=== PATIENT | male | born 1970 | race African-American/Black ===

== ENCOUNTER 2016-10-03 12:59 | Emergency (ER) | payer OTHER ==
[~2016-10-03] VITALS: Ht 182.9 cm; Wt 61.2 kg
[2016-10-03 13:45] VITALS: BP 137/76
[2016-10-03] MEDS ORDERED: IBUPROFEN600 MG ORAL (13:45)
[2016-10-03] MEDS ORDERED: ACETAMINOPHEN-1 EAC1 ORAL ×2 (13:45→13:50)
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
== END 2016-10-03 13:49 | disposition home or self-care (01) ==
LOC: EMR 13:49
DX: S76.312A Strain of muscle, fascia and tendon of the posterior muscle group at thigh level, left thigh, initial encounter (principal); X50.3XXA Overexertion from repetitive movements, initial encounter; Y93.55 Activity, bike riding; Y92.9 Unspecified place or not applicable
CPT/HCPCS: 99284

== ENCOUNTER 2019-07-26 11:05 | Emergency (ER) | payer OTHER ==
[~2019-07-26] VITALS: Ht 185.4 cm; Wt 111.1 kg
[~2019-07-26 11:05] MED LIST: ACETAMINOPHEN-1 EAC1 ORAL; IBUPROFEN600 MG ORAL
[2019-07-26 11:24] VITALS: BP 146/90
--- NOTE | 2019-07-26 11:27 | NUR ---
ED Nurse Note: Patient walked in to ER c/o CP x 4 days. Patient stated started from the back, then radiating to chest and left arm. Patient presented anxious, crying, AAO x4, VSS at this time. Patient stated argued today with his kids, after that started feel bad and anxiuos. Patient has non-labored breathing, O2 sat 100% on RA.
[2019-07-26] MEDS ORDERED: Omnipaque 350 100ml vial INJ PRN ×2 (11:30)
[2019-07-26 11:36] LABS: BASOPHILS % (AUTO) 1.1 % (0.0-2.0); EOSINOPHILS % (AUTO) 1.3 % (0.0-3.0); HEMATOCRIT 39.5 % (42.0-52.0); HEMOGLOBIN 13.4 G/DL (14.2-18.0); LYMPHOCYTES % (AUTO) 22.9 % (20.0-45.0); MEAN CORPUSCULAR VOLUME 94 FL (80-99); MONOCYTES % (AUTO) 9.1 % (1.0-10.0); NEUTROPHILS % (AUTO) 65.6 % (45.0-75.0); PLATELET COUNT 237 K/UL (150-450); RED CELL DISTRIBUTION WIDTH 13.2 % (11.6-14.8); WHITE BLOOD COUNT 8.4 K/UL (4.8-10.8)
[2019-07-26 11:52] LABS: ANION GAP 10 mmol/L (5-15); BLOOD UREA NITROGEN 15 mg/dL (7-18); CARBON DIOXIDE 24 MMOL/L (21-32); CHLORIDE 108 MMOL/L (98-107); POTASSIUM 4.1 MMOL/L (3.5-5.1); SODIUM 142 MMOL/L (136-145)
[2019-07-26 11:57] LABS: ALANINE AMINOTRANSFERASE 34 U/L (12-78); ALBUMIN 3.8 G/DL (3.4-5.0); ALBUMIN/GLOBULIN RATIO 1.1 (1.0-2.7); ALKALINE PHOSPHATASE 63 U/L (46-116); ASPARTATE AMINO TRANSFERASE 35 U/L (15-37); BILIRUBIN,TOTAL 0.8 MG/DL (0.2-1.0)
--- NOTE | 2019-07-26 12:27 | Emergency Room Report ---
History of Present Illness General Chief Complaint: Chest Pain Source: Patient Present Illness HPI 49-year-old male presents with atypical chest pain he feels a discomfort that started an hour prior to arrival he states his been having ongoing aches near his chest and left upper back for the past 4 days aggravated with movement alleviated with rest no exertional component no shortness of breath no dyspnea on exertion severity is mild, he denies any diaphoresis, he does report a family history of [place] around age 50 Allergies: Coded Allergies: No Known Allergies (Unverified , 10/03/16) COVID-19 Screening Contact w/high risk pt: No Recent Travel to affected area: No Experienced COVID-19 symptoms?: No Patient History Past Medical History: see triage record Reviewed Nursing Documentation: PMH: Agreed; PSxH: Agreed Nursing Documentation-PMH Past Medical History: No Stated History Review of Systems All Other Systems: negative except mentioned in HPI Physical Exam Vital Signs Date Time Temp Pulse Resp B/P (MAP) Pulse Ox O2 Delivery O2 Flow Rate FiO2 07/26/19 11:11 98.4 73 18 146/90 (108) 100 Room Air Sp02 EP Interpretation: reviewed, normal General Appearance: well appearing, no apparent distress, alert Head: normocephalic, atraumatic Eyes: bilateral eye PERRL, bilateral eye EOMI ENT: uvula midline, moist mucus membranes Neck: supple, thyroid normal, supple/symm/no masses Respiratory: lungs clear, no respiratory distress, no retraction, no accessory muscle use Cardiovascular #1: normal peripheral pulses, regular rate, rhythm, no edema, no gallop, no murmur Gastrointestinal: non tender, soft, no guarding, no rebound Musculoskeletal: normal inspection Neurologic: alert, oriented x3 Psychiatric: mood/affect normal Skin: no rash, warm/dry Medical Decision Making Diagnostic Impression: Primary Impression: Chest pain Qualified Codes: R07.9 - Chest pain, unspecified ER Course 49-year-old male presents with a heart score of 2 on further examination and history, patient reports he is been doing a lot of push-ups which may be contributing to his chest discomfort he also reports the pain also started when he slept on the sofa wrong endorsing that he tried to get the knot of his back by doing more push-ups. Reevaluation with reexamination of the back showed that he has a spasm muscle in the left scapular region No evidence of ACS, pulmonary embolism, pneumothorax, pneumonia. Historically not abrupt in onset, tearing or ripping, pulses symmetric, no evidence of aortic dissection. Patient given Toradol Patient with improvement in pain disposition home with return precautions counseled patient to get an outpatient stress test Laboratory Tests Test 07/26/19 11:21 White Blood Count 8.4 K/UL (4.8-10.8) Red Blood Count 4.20 M/UL (4.70-6.10) L Hemoglobin 13.4 G/DL (14.2-18.0) L Hematocrit 39.5 % (42.0-52.0) L Mean Corpuscular Volume 94 FL (80-99) Mean Corpuscular Hemoglobin 31.8 PG (27.0-31.0) H Mean Corpuscular Hemoglobin Concent 33.8 G/DL (32.0-36.0) Red Cell Distribution Width 13.2 % (11.6-14.8) Platelet Count 237 K/UL (150-450) Mean Platelet Volume 5.7 FL (6.5-10.1) L Neutrophils (%) (Auto) 65.6 % (45.0-75.0) Lymphocytes (%) (Auto) 22.9 % (20.0-45.0) Monocytes (%) (Auto) 9.1 % (1.0-10.0) Eosinophils (%) (Auto) 1.3 % (0.0-3.0) Basophils (%) (Auto) 1.1 % (0.0-2.0) Prothrombin Time 10.4 SEC (9.30-11.50) Prothrombin Time INR 1.0 (0.9-1.1) Activated Partial Thromboplast Time 27 SEC (23-33) Sodium Level 142 MMOL/L (136-145) Potassium Level 4.1 MMOL/L (3.5-5.1) Chloride Level 108 MMOL/L (98-107) H Carbon Dioxide Level 24 MMOL/L (21-32) Anion Gap 10 mmol/L (5-15) Blood Urea Nitrogen 15 mg/dL (7-18) Creatinine 1.0 MG/DL (0.55-1.30) Estimated Glomerular Filtration Rate > 60 mL/min (>60) Glucose Level 100 MG/DL (74-106) Calcium Level 9.0 MG/DL (8.5-10.1) Total Bilirubin 0.8 MG/DL (0.2-1.0) Aspartate Amino Transferase (AST) 35 U/L (15-37) Alanine Aminotransferase (ALT) 34 U/L (12-78) Alkaline Phosphatase 63 U/L (46-116) Troponin I 0.000 ng/mL (0.000-0.056) Total Protein 7.4 G/DL (6.4-8.2) Albumin 3.8 G/DL (3.4-5.0) Globulin 3.6 g/dL Albumin/Globulin Ratio 1.1 (1.0-2.7) EKG Diagnostic Results EKG Time: 11:19 EP Interpretation: NSR, rate 68, QTc 410, no acute ST elevations, normal axis Rhythm Strip Diag. Results Rhythm Strip Time: 11:20 EP Interpretation: yes Rate: 70 Rhythm: NSR, no PVC's, no ectopy Chest X-Ray Diagnostic Results Chest X-Ray Diagnostic Results : Chest X-Ray Ordered: Yes # of Views/Limited/Complete: 1 View Indication: Chest Pain EP Interpretation: Yes Interpretation: no consolidation, no effusion, no pneumothorax, no acute cardiopulmonary disease Impression: No acute disease Electronically Signed by: Torsten Leija MD CT/MRI/US Diagnostic Results CT/MRI/US Diagnostic Results : Impression Procedure: CTA Chest Abd/Pel wo/w Cont EXAM: CT Chest Without and With Intravenous Contrast CLINICAL HISTORY: PAIN TECHNIQUE: Axial computed tomography images of the chest without and with intravenous contrast. CTDI is 83.2 mGy and DLP is 870.4 mGy-cm. One or more of the following dose reduction techniques were used: automated exposure control, adjustment of the mA and/or kV according to patient size, use of iterative reconstruction technique. COMPARISON: None FINDINGS: Lungs: No definite pulmonary embolus identified. Subsegmental atelectasis in the lower lobes. No focal consolidation. Pleural space: Unremarkable. No pneumothorax. No significant effusion. Heart: Unremarkable. No cardiomegaly. No significant pericardial effusion. Thyroid: Heterogeneous, mildly enlarged thyroid could be further evaluated with nonemergent dedicated ultrasound if clinically indicated. Bones/joints: Degenerative changes of the spine. No acute fracture. No dislocation. Soft tissues: Unremarkable. Vasculature: No aortic aneurysm or dissection. Lymph nodes: Unremarkable. No enlarged lymph nodes. IMPRESSION: 1. No definite pulmonary embolus identified. 2. No aortic aneurysm or dissection. 3. No acute pulmonary parenchymal abnormality identified. EXAM: CT Abdomen and Pelvis Without and With Intravenous Contrast CLINICAL HISTORY: PAIN TECHNIQUE: Axial computed tomography images of the abdomen and pelvis without and with intravenous contrast. CTDI is 83.2 mGy and DLP is 870.4 mGy-cm. One or more of the following dose reduction techniques were used: automated exposure control, adjustment of the mA and/or kV according to patient size, use of iterative reconstruction technique. COMPARISON: None FINDINGS: Lung bases: Unremarkable. No mass. No consolidation. ABDOMEN: Liver: Unremarkable. No mass. Gallbladder and bile ducts: Underdistended gallbladder. No calcified stones. No ductal dilation. Pancreas: Unremarkable. No mass. No ductal dilation. Spleen: Nonspecific small hypodensities in the spleen. Adrenals: Nonspecific thickening of the adrenal glands. Kidneys and ureters: Small hypodensity in the right kidney is too small to definitively characterize. Small left renal cyst. No hydronephrosis or obstructing stone. Stomach and bowel: Colon is underdistended which limits evaluation. No small bowel obstruction. No mucosal thickening. PELVIS: Appendix: Normal appendix. Bladder: Mild prominence of the bladder wall may be secondary to under distention. Please correlate with urinalysis if concerned for cystitis. No stones. Reproductive: Unremarkable as visualized. ABDOMEN and PELVIS: Intraperitoneal space: Unremarkable. No free air. No significant fluid collection. Bones/joints: Lumbosacral transitional anatomy. Degenerative changes of the spine. No acute fracture. No dislocation. Soft tissues: Small fat-containing left inguinal hernia. Small fat- containing umbilical hernia. Vasculature: No aortic aneurysm or dissection. Minimal atherosclerotic changes. Lymph nodes: Unremarkable. No enlarged lymph nodes. IMPRESSION: 1. Nonspecific thickening of the adrenal glands. 2. Mild prominence of the bladder wall may be secondary to under distention. Please correlate with urinalysis if concerned for cystitis. 3. No other acute abnormality in the abdomen or pelvis. 4. No aortic aneurysm or dissection. Dictated By: Elisabeth Lee MD Electronically Signed By: Elisabeth Lee MD Signed Date/Time 07/26/19 1227 CC: Torsten Leija MD Last Vital Signs Date Time Temp Pulse Resp B/P (MAP) Pulse Ox O2 Delivery O2 Flow Rate FiO2 07/26/19 11:24 73 18 Room Air 07/26/19 11:24 98.4 146/90 100 Disposition: HOME, SELF-CARE Condition: Stable Scripts Ibuprofen* (MOTRIN*) 600 Mg Tablet 600 MG ORAL Q8H PRN for FOR PAIN, #30 TAB 0 Refills Prov: Torsten Leija MD 07/26/19 Referrals: NON PHYSICIAN (PCP) [facility] Jose Martin Burks [facility] Patient Instructions: Muscle Strain, [id number], Nonspecific Chest Pain Additional Instructions: The patient was provided with discharge instructions, notified to follow-up with a primary care doctor and or specialist in the next 24-48 hours, and to return to the ED if they have worsening of their symptoms. Please note that this report is being documented using [employer] technology. This can lead to erroneous entry secondary to incorrect interpretation by the dictating instrument. PLEASE OBTAIN AN OUTPATIENT STRESS TEST WITH A SAFETY PERSON Torsten Leija MD Jul 26, 2019 12:27
[2019-07-26 12:32] VITALS: BP 142/89
[2019-07-26] MEDS ORDERED: Ketorolac 30mg Inj IV ONE (12:45)
[2019-07-26] MEDS ORDERED: IBUPROFEN600 M1 ORAL (12:55)
[2019-07-26 13:01] VITALS: BP 142/89
--- NOTE | 2019-07-26 13:30 | NUR ---
ER DISCHARGE NOTE: Patient is cleared to be discharged per ERMD, pt is aox4, on room air, with stable vital signs. pt was given dc and prescription instructions, pt was able to verbalize understanding, pt id band and iv site removed without complications. pt is able to ambulate with steady gait. pt took all belongings.
--- NOTE | 2019-07-26 14:06 | Diagnostic Imaging Report ---
EXAM: XR Chest, 1 View CLINICAL HISTORY: CP TECHNIQUE: Frontal view of the chest. COMPARISON: None FINDINGS: Hardware: None. Lungs/pleura: Mild subsegmental atelectasis or scarring in the lower lungs. No focal consolidation. No pleural effusion or pneumothorax. Heart/mediastinum: Normal. No cardiomegaly. Soft tissues: Unremarkable. Bones: No acute fracture. Upper abdomen: Normal. IMPRESSION: No acute disease identified.
== END 2019-07-26 13:01 | disposition home or self-care (01) ==
LOC: EMR 11:18
DX: R07.9 Chest pain, unspecified (principal); M54.6 Pain in thoracic spine; M62.830 Muscle spasm of back
CPT/HCPCS: 36415; 71045; 71275; 74174; 80053; 84484; 85025; 85610; 85730; 93005; 96374; J1885; Q9967; Z7502; 99284

== ENCOUNTER 2020-03-02 08:48 | Emergency (ER) | payer MEDICAID, OTHER ==
[~2020-03-02] VITALS: Ht 182.9 cm; Wt 108.9 kg
[~2020-03-02 08:48] MED LIST changes: +IBUPROFEN600 M1 ORAL
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
--- NOTE | 2020-03-02 09:46 | NUR ---
ED Nurse Note: pt in radiology.
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
--- NOTE | 2020-03-02 10:12 | NUR ---
ED Nurse Note: pt returned from radiology, no increased pain.
[2020-03-02] MEDS ORDERED: BACITRACIN15 GM TOPIC (10:20)
[2020-03-02] MEDS ORDERED: IBUPROFEN600 M1 ORAL (10:20)
--- NOTE | 2020-03-02 10:26 | NUR ---
ED Nurse Note: Pt cleared by health care Provider for discharge. DC instructions given and explained to pt and verbalized understanding of teachings. pt aware meds prescription sent electronically to his pharmacy. All medical devices such as ID band removed. Pt is AAO x4, ambulatory and left with all personal belongings.
[2020-03-02 10:37] VITALS: BP 128/76
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
== END 2020-03-02 10:38 | disposition home or self-care (01) ==
LOC: EMR 09:17
DX: S70.02XA Contusion of left hip, initial encounter (principal); S50.312A Abrasion of left elbow, initial encounter; V03.99XA Pedestrian with other conveyance injured in collision with car, pick-up truck or van, unspecified whether traffic or nontraffic accident, initial encounter; Y93.55 Activity, bike riding; Y92.411 Interstate highway as the place of occurrence of the external cause
CPT/HCPCS: 71045; 72020; 73502; Z7502; 99284